=== PATIENT | female | born 1975 | race Caucasian/White ===

== ENCOUNTER 2017-03-22 19:23 | Emergency (ER) | payer BC, OTHER ==
[~2017-03-22] VITALS: Ht 160 cm; Wt 89.4 kg
[~2017-03-22 19:23] MED LIST: ALEVE220 MG PO; BIRTH CONTROL; FLEXERIL5 MG PO; LOESTRIN 1/21 TABLET; MIGRAINE RELIE1 EAC2 PO; TYLENOL WITH C1 EACH PO
[2017-03-22 19:26] VITALS: BP 132/89
[2017-03-22 20:09] LABS: HEMATOCRIT 41.3 % (36.0-46.0); MCH 30.2 PG (29.0-34.0); MCHC 33.9 G/DL (30.0-36.0); MCV 89.2 FL (83-99); MEAN PLAT.VOLUME 10.5 uM^3 (9.5-12.4); PLATELET COUNT 308 K/uL (156-360); RBC DIS.WIDTH-CV 12.6 % (11.8-14.6); RBC DIS.WIDTH-SD 41.4 % (39-53); RED BLOOD COUNT 4.63 M/uL (3.80-5.20); WHITE BLOOD COUNT 9.7 K/uL (4.1-10.2)
[2017-03-22 20:21] LABS: CHLORIDE 106 mEq/L (99-109); SODIUM 139 mEq/L (136-147)
[2017-03-22 20:22] LABS: GLUCOSE 91 mg/dL (70-99)
[2017-03-22 20:24] LABS: ANION GAP 12 MEQ/L (2-14)
[2017-03-22 20:26] LABS: GFR ESTIMATE (CALCULATED) > 59 mL/min/
[2017-03-22 20:27] LABS: UREA NITROGEN (BUN) 16 mg/dL (9-23)
[2017-03-22 20:32] LABS: TROP-I INTERPRETATION NEGATIVE; TROPONIN-I < 0.01 ng/mL (0.0-0.30)
== END 2017-03-22 22:23 | disposition left against medical advice (07) ==
LOC: EME 19:23
DX: R07.9 Chest pain, unspecified (principal); Z53.21 Procedure and treatment not carried out due to patient leaving prior to being seen by health care provider
CPT/HCPCS: 71020; 80048; 84484; 85027; 93005